=== PATIENT | female | born 1985 | race Hispanic/Latino ===

== ENCOUNTER 2020-11-13 15:39 | Emergency (ER) | payer SELFPAY ==
[2020-11-13 17:47] LABS: Urine Blood NEGATIVE (NEG); Urine Glucose NEGATIVE (NEG); Urine Protein NEGATIVE (NEG)
[2020-11-13] MEDS ORDERED: KETOROLAC 30 MG/ML INJ ONE (19:26)
[2020-11-13] MEDS ORDERED: NA CHLORIDE 0.9% 1,000 ML ONE (19:26)
[2020-11-13] MEDS ORDERED: ONDANSETRON 4 MG/2 ML VIAL ONE (19:26)
[2020-11-13 19:38] LABS: Absolute Lymphocytes (CBC) 3.2 K/uL (0.7-4.9); Basophils % 0.4 % (0-1.3); Hematocrit 36.2 % (36.0-45.0); Lymphocytes % 35.6 % (15.3-44.8); MPV 11.5 fL (7.6-11.3); RBC Red Blood Cell Count 3.92 M/uL (3.86-4.86)
[2020-11-13 19:49] LABS: ALT/SGPT 51 U/L (12-78); AST/SGOT 164 U/L (15-37); Albumin 3.7 g/dL (3.4-5.0); Alkaline Phosphatase 82 U/L (45-117); BUN Blood Urea Nitrogen 10 mg/dL (7-18); Bicarbonate 26 mmol/L (21-32); Bilirubin Direct < 0.1 mg/dL (0-0.2); Bilirubin Total 0.3 mg/dL (0.2-1.0); Glucose Level 79 mg/dL (74-106); Lipase 153 U/L (73-393); Potassium 3.8 mmol/L (3.5-5.1); Protein, Total 7.7 g/dL (6.4-8.2); Sodium Level 141 mmol/L (136-145)
--- NOTE | 2020-11-14 01:51 | EDPHYS ---
Physician Documentation [facility] Name: Becky Mcdonald Age: 35 yrs Sex: Female : 1985 Arrival Date: 11/13/2020 Time: 15:43 Bed 15 Private MD: ED Physician Aron Bhandari HPI: 11/13 19:05 This 35 yrs old Female presents to ER via Ambulatory with complaints of Lower cp abd Pain. 19:05 The patient presents with abdominal pain in the lower abdomen, right side worse than cp left. Onset: The symptoms/episode began/occurred yesterday. 19:05 Associated signs and symptoms: Pertinent positives: constipation, dysuria, Pertinent cp negatives: blood in stools, diarrhea, fever, hematuria, vaginal discharge, vomiting. The symptoms are described as achy. Modifying factors: the symptoms are aggravated by pressure, drawing right leg up to abdomen. 19:05 Severity of pain: in the emergency department the pain is unchanged despite home cp interventions. Historical: - Allergies: 15:56 No Known Allergies; ll1 - PMHx: 15:56 None; ll1 - PSHx: 15:56 Cholecystectomy; ; Tubal ligation; gastric sleeve; ll1 - Immunization history:: Flu vaccine is not up to date. - Social history:: Smoking status: Patient denies any tobacco usage or history of. ROS: 19:10 Constitutional: Negative for body aches, chills, fever, poor PO intake. cp 19:10 Eyes: Negative for injury, pain, redness, and discharge, ENT: Negative for injury, cp pain, and discharge. 19:10 Cardiovascular: Negative for chest pain, palpitations. 19:10 Respiratory: Negative for cough, shortness of breath, wheezing. 19:10 Abdomen/GI: Positive for abdominal pain, nausea, constipation, of the right lower quadrant and left lower quadrant, Negative for vomiting, diarrhea. 19:10 : Positive for burning with urination, Negative for hematuria, flank pain, vaginal bleeding, vaginal discharge. 19:10 All other systems are negative. Exam: 19:20 Constitutional: The patient appears in no acute distress, alert, awake, non-toxic, well cp developed, well nourished. 19:20 Head/Face: Normocephalic, atraumatic. cp 19:20 Eyes: Periorbital structures: appear normal, Conjunctiva: normal, no exudate, no injection, Sclera: no appreciated abnormality, Lids and lashes: appear normal, bilaterally. 19:20 ENT: External ear(s): are unremarkable, Nose: is normal, Posterior pharynx: Airway: no evidence of obstruction, patent. 19:20 Chest/axilla: Inspection: normal, Palpation: is normal, no crepitus, no tenderness. 19:20 Cardiovascular: Rate: normal, Rhythm: regular. 19:20 Respiratory: the patient does not display signs of respiratory distress, Respirations: normal, no use of accessory muscles, no retractions, labored breathing, is not present, Breath sounds: are clear throughout, no decreased breath sounds, no stridor, no wheezing. 19:20 Abdomen/GI: Inspection: abdomen appears normal, Bowel sounds: active, all quadrants, Palpation: soft, in all quadrants, mild abdominal tenderness, in the left lower quadrant, moderate abdominal tenderness, in the right lower quadrant, rebound tenderness, is not appreciated, voluntary guarding, is elicited in the right lower quadrant. 19:20 Back: CVA tenderness, is absent. Vital Signs: 15:53 BP 107 / 55; Pulse 77; Resp 16; Temp 98.4; Pulse Ox 100% ; Weight 76.66 kg; Height 5 ll1 ft. 4 in. (162.56 cm); Pain 6/10; 18:55 BP 113 / 67; Pulse 79; Resp 18; Pulse Ox 100% on R/A; em 20:30 BP 104 / 54; Pulse 64; Resp 18; Pulse Ox 100% on R/A; fu 21:16 BP 101 / 51; Pulse 58; Resp 18; Temp 97.8(O); Pulse Ox 100% ; Pain 0/10; fu 11/14 00:44 BP 90 / 44; Pulse 60; Pulse Ox 99% on R/A; Pain 0/10; fu 11/13 15:53 Body Mass Index 29.01 (76.66 kg, 162.56 cm) ll1 MDM: 11/13 18:50 Patient medically screened. cp 19:30 Differential diagnosis: appendicitis, bowel obstruction, cholecystitis, Cholelithiasis, cp Ectopic , non-specific abd pain, Ovarian Torsion, Pelvic Inflammatory Disease, Pyelonephritis, Ureterolithiasis, urinary tract infection. 11/14 01:36 Data reviewed: vital signs, nurses notes, lab test result(s), radiologic studies, CT cp scan, ultrasound. ED course: US tech reports transvaginal US negative for torsion of right ovary, shows multiple cysts right ovary. 01:48 ED course: review of [place] prescription monitor website: narcotic score of 030, cp sedative score of 010 and overdose risk score of 110. 01:50 Counseling: I had a detailed discussion with the patient and/or guardian regarding: the cp historical points, exam findings, and any diagnostic results supporting the discharge/admit diagnosis, lab results, radiology results, the need for outpatient follow up, an OB/Gyne specialist, to return to the emergency department if symptoms worsen or persist or if there are any questions or concerns that arise at home. 01:50 Response to treatment: the patient's symptoms have markedly improved after treatment, cp and as a result, I will discharge patient. 01:50 Special discussion: Based on the patient's Hx, exam, and Dx evaluation, there is no cp indication for emergent surgery or inpatient Tx. It is understood by the patient/guardian that if the Sx's persist or worsen they need to return immediately for re-evaluation. 11/13 17:39 Order name: Urine Dipstick--Ancillary (enter results); Complete Time: 18:51 11/13 17:39 Order name: Urine --Ancillary (enter results); Complete Time: 18:51 11/13 19:02 Order name: Basic Metabolic Panel; Complete Time: 20:00 11/13 21:04 Interpretation: Normal except: CL 110. 11/13 19: Order name: CBC with Diff; Complete Time: 20:00 11/13 20:01 Interpretation: Normal except: PLT 148; MPV 11.5. 11/13 19:02 Order name: Hepatic Function; Complete Time: 20:00 11/13 20:01 Interpretation: Normal except: AST 164; GLOB 4.0; A/G 0.9. 11/13 19:02 Order name: Lipase; Complete Time: 20:00 11/13 19:02 Order name: IV Saline Lock; Complete Time: 19:28 11/13 19: Order name: Labs collected and sent; Complete Time: 19:29 cp 11/13 19:02 Order name: CT Abd/Pelvis - PO and IV Contrast cp 11/13 23:19 Order name: US Transvaginal Study (Probe) cp Administered Medications: 11/13 19:27 Drug: TORadol - Ketorolac 15 mg Route: IVP; Site: right antecubital; fu 20:27 Follow up: Response: Pain is decreased fu 19:28 Drug: NS 0.9% 1000 ml Route: IV; Rate: 1 bolus; Site: right antecubital; fu 11/14 01:53 Follow up: IV Intake: 1000ml fu 11/13 19:28 Drug: Zofran (Ondansetron) 4 mg Route: IVP; Site: right antecubital; fu 20:28 Follow up: Response: No adverse reaction fu Disposition: 11/14 14:03 Co-signature as Attending Physician, Aron Bhandari MD I agree with the assessment and kdr plan of care. Disposition: 11/14/20 01:50 Discharged to Home. Impression: Other and unspecified ovarian cysts. - Condition is Stable. - Discharge Instructions: Ovarian Cyst. - Prescriptions for Tramadol 50 mg Oral Tablet - take 1 tablet by ORAL route every 8 hours as needed; 12 tablet. - Medication Reconciliation Form, Thank You Letter, Antibiotic Education, Prescription Opioid Use form. - Follow up: Nan Salas MD; When: 1 week; Reason: Recheck today's complaints. - Problem is new. - Symptoms have improved. Signatures: Dispatcher [employer] EDMS Aron Bhandari MD MD [facility] Brandin Israel PA PA Yayo Kapoor RN RN Sabi Albright RN RN ll1 Corrections: (The following items were deleted from the chart) 02:07 01:50 11/14/2020 01:50 Discharged to Home. Impression: Other and unspecified ovarian fu cysts. Condition is Stable. Forms are Medication Reconciliation Form, Thank You Letter, Antibiotic Education, Prescription Opioid Use. Follow up: Nan Salas; When: 1 week; Reason: Recheck today's complaints. Problem is new. Symptoms have improved. cp 23:14 11/13 19:05 Associated signs and symptoms: Pertinent positives: constipation, Pertinent cp negatives: blood in stools, diarrhea, dysuria, fever, hematuria, vaginal discharge, vomiting, cp 11/14 23:14 01 19:05 The symptoms are described as sharp, cp cp
--- NOTE | 2020-11-14 01:51 | ER ---
Nurse's Notes [facility] Name: Becky Mcdonald Age: 35 yrs Sex: Female : 1985 Arrival Date: 11/13/2020 Time: 15:43 Bed 15 Private MD: Diagnosis: Other and unspecified ovarian cysts Presentation: 11/13 15:53 Chief complaint: Patient states: Dysuria and R pelvic pain for 2 days. No fever. + ll1 nausea. Coronavirus screen: Client denies travel out of the [place] in the last 14 days. At this time, the client does not indicate any symptoms associated with coronavirus-19. Ebola Screen: Patient denies travel to an Ebola-affected area in the 21 days before illness onset. Initial Sepsis Screen: Does the patient meet any 2 criteria? No. Patient's initial sepsis screen is negative. Does the patient have a suspected source of infection? Yes: Dysuria/Frequency/Urgency/UTI. Risk Assessment: Do you want to hurt yourself or someone else? Patient reports no desire to harm self or others. Onset of symptoms was November 12, 2020. 15:53 Method Of Arrival: Ambulatory ll1 15:53 Acuity: NOLBERTO 3 ll1 Triage Assessment: 15:56 General: Appears in no apparent distress. Behavior is calm, cooperative, appropriate ll1 for age. Pain: Complains of pain in R pelvic Quality of pain is described as aching. Neuro: No deficits noted. Cardiovascular: No deficits noted. Respiratory: No deficits noted. GI: Abdomen is flat, Bowel sounds present X 4 quads. Reports lower abdominal pain, constipation, nausea. : Reports burning with urination. Historical: - Allergies: 15:56 No Known Allergies; ll1 - PMHx: 15:56 None; ll1 - PSHx: 15:56 Cholecystectomy; ; Tubal ligation; gastric sleeve; ll1 - Immunization history:: Flu vaccine is not up to date. - Social history:: Smoking status: Patient denies any tobacco usage or history of. Screenin:54 Abuse screen: Denies threats or abuse. Nutritional screening: No deficits noted. em Tuberculosis screening: No symptoms or risk factors identified. Fall Risk None identified. Assessment: 18:50 General: Appears in no apparent distress. comfortable, Behavior is calm, cooperative, em appropriate for age, Denies fever. Pain: Complains of pain in right lower quadrant Pain currently is 6 out of 10 on a pain scale. Neuro: Level of Consciousness is awake, alert, obeys commands, Oriented to person, place, time, situation, Appropriate for age. Cardiovascular: Capillary refill < 3 seconds Patient's skin is warm and dry. Respiratory: Airway is patent Respiratory effort is even, unlabored, Respiratory pattern is regular, symmetrical. GI: Patient currently denies nausea, vomiting. : Reports burning with urination. Derm: Skin is intact, is healthy with good turgor, Skin is pink, warm \T\ dry. Musculoskeletal: Capillary refill < 3 seconds, Range of motion: intact in all extremities. 19:00 Reassessment: Patient and/or family updated on plan of care and expected duration. Pain fu level reassessed. Patient is alert, oriented x 3, equal unlabored respirations, skin warm/dry/pink. patient resting in bed, not in respiratory distress. 20:00 Reassessment: Patient appears in no apparent distress at this time. No changes from fu previously documented assessment. 22:43 Reassessment: Patient appears in no apparent distress at this time. No changes from fu previously documented assessment. Patient and/or family updated on plan of care and expected duration. Pain level reassessed. 11/14 00:25 Reassessment: Patient appears in no apparent distress at this time. Patient is alert, fu oriented x 3, equal unlabored respirations, skin warm/dry/pink. 01:50 Reassessment: Patient appears in no apparent distress at this time. No changes from fu previously documented assessment. Vital Signs: 11/13 15:53 BP 107 / 55; Pulse 77; Resp 16; Temp 98.4; Pulse Ox 100% ; Weight 76.66 kg; Height 5 ll1 ft. 4 in. (162.56 cm); Pain 6/10; 18:55 BP 113 / 67; Pulse 79; Resp 18; Pulse Ox 100% on R/A; em 20:30 BP 104 / 54; Pulse 64; Resp 18; Pulse Ox 100% on R/A; fu 21:16 BP 101 / 51; Pulse 58; Resp 18; Temp 97.8(O); Pulse Ox 100% ; Pain 0/10; fu 11/14 00:44 BP 90 / 44; Pulse 60; Pulse Ox 99% on R/A; Pain 0/10; fu 11/13 15:53 Body Mass Index 29.01 (76.66 kg, 162.56 cm) ll1 ED Course: 11/13 15:43 Patient arrived in ED. ds1 15:55 Triage completed. ll1 15:56 Arm band placed on. ll1 18:41 Ward Pedro, RN is Primary Nurse. em 18:46 Brandin Israel PA is PHCP. cp 18:46 Aron Bhandari MD is Attending Physician. cp 18:54 Patient has correct armband on for positive identification. Placed in gown. Bed in low em position. Call light in reach. Adult w/ patient. Pulse ox on. NIBP on. 19:20 Inserted saline lock: 20 gauge in right antecubital area, using aseptic technique. fu Blood collected. 19:24 Primary Nurse role handed off by Ward Pedro RN mw2 19:27 Yayo Kapoor RN is Primary Nurse. fu 19:28 Basic Metabolic Panel Sent. fu 19:28 CBC with Diff Sent. fu 19:28 Hepatic Function Sent. fu 19:28 Lipase Sent. fu 19:50 No provider procedures requiring assistance completed. fu 22:46 CT Abd/Pelvis - PO and IV Contrast In Process Unspecified. EDMS 11/14 01:34 US Transvaginal Study (Probe) In Process Unspecified. EDMS 01:49 Nan Salas MD is Referral Physician. cp 02:03 IV discontinued, bleeding controlled, Pressure dressing applied. fu 02:04 Ultrasound completed. Patient tolerated well. Notified ED Physician page. sg3 Administered Medications: 11/13 19:27 Drug: TORadol - Ketorolac 15 mg Route: IVP; Site: right antecubital; fu 20:27 Follow up: Response: Pain is decreased fu 19:28 Drug: NS 0.9% 1000 ml Route: IV; Rate: 1 bolus; Site: right antecubital; fu 11/14 01:53 Follow up: IV Intake: 1000ml fu 11/13 19:28 Drug: Zofran (Ondansetron) 4 mg Route: IVP; Site: right antecubital; fu 20:28 Follow up: Response: No adverse reaction fu Intake: 11/14 01:53 IV: 1000ml; Total: 1000ml. fu Outcome: 01:50 Discharge ordered by . clementina 02:03 Discharged to home ambulatory. fu 02:03 Condition: good 02:03 Discharge instructions given to patient, Instructed on discharge instructions, follow up and referral plans. Demonstrated understanding of instructions, follow-up care, Prescriptions given X 1. 02:07 Patient left the ED. fu Signatures: Dispatcher [employer] Ward Rankin, RN RN Chacha Glover ds1 Brandin Israel PA PA cp Umadhay, Felix, RN RN Reta Sellers 3 Bryson Khoury mw2 Sabi Albright RN RN ll1
[2020-11-14 02:22] VITALS: TEMP 97.8
[2020-11-14 02:24] VITALS: BP 90/44; O2SAT 99
--- NOTE | 2020-11-15 12:52 | RAD REPORT ---
EXAM DESCRIPTION: CT - Abdomen Pelvis W Contrast - 11/14/2020 1:22 am CLINICAL HISTORY: 35-year-old female with RIGHT lower quadrant abdominal pain. COMPARISON: None. TECHNIQUE: CT of the abdomen and pelvis was performed following intravenous administration of contra st. Oral contrast was administered. Multiplanar reformatted images were provided. This exam was perfo rmed according to our departmental dose optimization program which includes use of automated exposure control, adjustment of the mA and/or kV according to patient size and/or use of iterative reconstruc tion technique. FINDINGS: Chest: Evaluation through the lung bases reveals no focal opacity, pleural effusion or pne umothorax. Heart size is within normal limits. No pericardial effusion. Abdomen and pelvis: The liver, gallbladder, pancreas, spleen, bilateral kidneys and bilateral adrenal glands are within normal limits. The vessels are patent and normal in caliber. Retroaortic LEFT renal vein. No abdominopelvic lymph nodes are noted to be pathologically enlarged by CT measurement criteria. The bowel is within normal limits without abnormal bowel wall thickness or bowel dilation. Contrast o pacifies the distal small bowel through the large bowel to the level of the rectum. The appendix is o pacified and within normal limits. No free air. No free abdominopelvic fluid collections. The uterus and LEFT adnexa are within normal limits of a contrast-enhanced CT examination. The RIGHT adnexa reveals multiple cystic type structures, individually measuring up to 3.7 cm, collectively gema suring up to 6.3 cm raising the possibility of multiple ovarian cysts or a larger cyst with septation . Thickened appearance of the bladder wall may be secondary to incomplete distention, however can be se en in the setting of infectious or inflammatory process. Please correlate with laboratory values. The osseous structures are within normal limits. IMPRESSION: 1. No specific acute intra-abdominal findings are noted to suggest etiology of the patie nt's abdominal pain. 2. Multiple ovarian cysts. Most severe: 6.3 cm indeterminate ovarian cyst. Recommend prompt follow- up with pelvic US. Reference: J Am Rae Radiol 2013;10:675-681 3. Thickened appearance of the bladder wall may be secondary to incomplete distention, however can be seen in the setting of infectious or inflammatory process. Please correlate with laboratory values. Electronically signed by: Reta Ontiveros MD 11/13/2020 11:06 PM RULING MACHINE FEEDER Due to temporary technical issues with the PACS/Fluency reporting system, reports are being signed by the in house radiologist without review as a courtesy to ensure prompt reporting. The interpreting r adiologist is fully responsible for the content of the report.
--- NOTE | 2020-11-15 13:10 | RAD REPORT ---
EXAM DESCRIPTION: US - Transvaginal Study Probe - 11/14/2020 1:34 am CLINICAL HISTORY: The patient is 35 years old and is Female; r/o ovarian torsion;Abd pain TECHNIQUE: Real-time transvaginal pelvic ultrasound with image documentation. Transvaginal imaging was used for better evaluation of the endometrium and adnexa. COMPARISON: No relevant prior studies available. FINDINGS: UTERUS/CERVIX: The uterus measures 10.0 x 3.4 x 5.9 cm. The endometrium measures 1.5 cm. Several nabothian cysts are present. A 2.7 cm exophytic uterine fibroid is present. RIGHT OVARY: The right ovary measures 5.3 x 4.1 x 6.4 cm. Normal arterial and venous color Doppl er and spectral waveform is present. 2 complex right ovarian cysts are present measuring approximatel y 3.1 x 3.5 cm. Normal blood flow. LEFT OVARY: The left ovary is not visualized secondary to bowel gas. FREE FLUID: No free fluid. BLADDER: Empty bladder which cannot be evaluated with this probe. IMPRESSION: 1. No evidence of torsion. 2. Complex right ovarian cysts. 3.5 cm indeterminate ovarian cyst. Recommend pelvic US follow-up in 6-12 weeks; if unchanged, continue follow-up with US OR MRI with IV contrast - if follow-up studie s do not confirm endometrioma or dermoid, consider surgical evaluation. Reference: Radiology 2010 Jun;256(3):943-73 Electronically signed by: Araceli Mcclain MD 11/14/2020 5:56 AM COMMERCIAL SUBCONTRACTOR Due to temporary technical issues with the PACS/Fluency reporting system, reports are being signed by the in house radiologist without review as a courtesy to ensure prompt reporting. The interpreting r adiologist is fully responsible for the content of the report.
== END 2020-11-14 02:07 | disposition home or self-care (01) ==
LOC: ER 15:39
DX: N83.299 Other ovarian cyst, unspecified side (principal)
CPT/HCPCS: 36415; 74177; 76830; 80048; 80076; 81003; 81025; 83690; 85025; 96374; 96375; 99284; J2405; J7030; Q9967

== ENCOUNTER 2021-01-25 19:02 | Emergency (ER) | payer OTHER, SELFPAY ==
--- OUTSIDE RECORDS SUMMARY | 2021-01-25 19:06 | XMS REPORT | Continuity of Care Document ---
:1985 Author Organization [facility] t Address [address] [place] [address] Care Team Providers Name Role Phone Maria Esther Valle Attending Clinician Doctor Unassigned, Name Attending Clinician Unavailable Torsten James MD Attending Clinician Problems This patient has no known problems. Allergies, Adverse Reactions, Alerts This patient has no known allergies or adverse reactions. Medications This patient has no known medications. Procedures This patient has no known procedures. Encounters Start End Encounter Admission Attending Care Care Encounter Source Date/Time Date/Time Type Type Clinicians Facility Department ID 2021-01-18 2021-01-18 MARIAM Cullen [id number] 08:51:19 09:41:09 Maria Esther Dc [facility] RN [id number] Visit [facility] [id number] MATERNAL [id number] & CHILD [address] [place] [address] 2021-01-18 2021-01-18 Orders Doctor NI [id number] 00:00:00 00:00:00 Only [facility] [id number] [id number] 2020-11-22 2020-11-22 Orders Doctor NI [id number] 00:00:00 00:00:00 Only [facility] bourne [id number] [place] [id number] 2020-06-02 2020-06-02 Office Erika HIMARTIN [id number] 13:01:03 13:16:03 Visit David Onofre [id number] Torsten Butler [id number] Yovanny [id number] [place] [address] Building Results This patient has no known results.
[2021-01-25 20:40] LABS: Urine Blood Trace-lysed (Negative); Urine Glucose Negative (Negative); Urine Protein Negative (Negative); Urine Specific Gravity 1.025 (1.005-1.030)
[2021-01-25 20:50] LABS: Urine Blood TRACE (Negative); Urine Glucose NEGATIVE (Negative); Urine Protein NEGATIVE (Negative); Urine Specific Gravity 1.025 (1.005-1.030)
[2021-01-25 21:04] LABS: Urine Bacteria <20 /HPF (<20); Urine RBC NONE SEEN /HPF (NONE SEEN); Urine Urothelial Cells <5 /HPF (NONE SEEN)
[2021-01-25 21:07] LABS: Absolute Lymphocytes (CBC) 3.1 K/uL (0.7-4.9); Basophils % 0.2 % (0-1.3); Hematocrit 32.6 % (36.0-45.0); Lymphocytes % 27.9 % (15.3-44.8); MPV 11.1 fL (7.6-11.3); RBC Red Blood Cell Count 3.54 M/uL (3.86-4.86)
[2021-01-25 21:34] LABS: BUN Blood Urea Nitrogen 11 mg/dL (7-18); Bicarbonate 23 mmol/L (21-32); Glucose Level 97 mg/dL (74-106); HCG, Quantitative 15005 mIU/mL (1-3); Potassium 3.5 mmol/L (3.5-5.1); Sodium Level 139 mmol/L (136-145)
[2021-01-25 22:24] LABS: Urine Specific Gravity/Preg 1.025 (1.005-1.030)
--- NOTE | 2021-01-25 23:08 | ER ---
Nurse's Notes [facility] Name: Becky Mcdonald Age: 35 yrs Sex: Female : 1985 Arrival Date: 01/25/2021 Time: 19:07 Bed 2 Private MD: Diagnosis: Threatened Presentation: 01/25 19:23 Chief complaint: Patient states: Spotting with urination since Sunday. Today, she had a ll1 small clot that she noticed in the toilet after urination. LMP: 12/18/20. Approximately 5 weeks , G4, P3. Coronavirus screen: Client denies travel out of the [place] in the last 14 days. At this time, the client does not indicate any symptoms associated with coronavirus-19. Ebola Screen: Patient denies travel to an Ebola-affected area in the 21 days before illness onset. Initial Sepsis Screen: Does the patient meet any 2 criteria? No. Patient's initial sepsis screen is negative. Does the patient have a suspected source of infection? Yes: Dysuria/Frequency/Urgency/UTI. Risk Assessment: Do you want to hurt yourself or someone else? Patient reports no desire to harm self or others. Onset of symptoms was January 20, 2021. 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 - Social history:: Smoking status: Patient denies any tobacco usage or history of. Screenin:48 Abuse screen: Denies threats or abuse. Nutritional screening: No deficits noted. ea Tuberculosis screening: No symptoms or risk factors identified. Fall Risk None identified. Assessment: 21:17 General: Appears in no apparent distress. Behavior is calm, cooperative, appropriate ea for age. Pain: Denies pain. Neuro: Level of Consciousness is awake, alert, obeys commands, Oriented to person, place, time. Cardiovascular: Patient's skin is warm and dry. Respiratory: Airway is patent Respiratory effort is even, unlabored, Respiratory pattern is regular, symmetrical. Derm: Skin is pink, warm \T\ dry. 21:58 Reassessment: Patient and/or family updated on plan of care and expected duration. Pain ea level reassessed. Patient is alert, oriented x 3, equal unlabored respirations, skin warm/dry/pink. Ultrasounds at bedside. 22:30 Reassessment: Patient and/or family updated on plan of care and expected duration. Pain ea level reassessed. Patient is alert, oriented x 3, equal unlabored respirations, skin warm/dry/pink. Vital Signs: 19:23 BP 111 / 68; Pulse 76; Resp 16; Temp 98.3; Pulse Ox 98% ; Weight 70.31 kg; Height 5 ft. ll1 4 in. (162.56 cm); Pain 0/10; 23:07 BP 112 / 70; Pulse 77; Resp 16; Pulse Ox 99% on R/A; sg 19:23 Body Mass Index 26.61 (70.31 kg, 162.56 cm) ll1 ED Course: 19:07 Patient arrived in ED. ds1 19:22 Arm band placed on. ll1 19:27 Triage completed. ll1 20:22 Vik Mireles NP is PHCP. pm1 20:22 Jose L De Los Santos MD is Attending Physician. pm1 20:47 Meri Hand, YING is Primary Nurse. ea 20:48 Patient has correct armband on for positive identification. Bed in low position. Call ea light in reach. 20:57 Inserted saline lock: 20 gauge in left antecubital area, using aseptic technique. Blood ea collected. 22:30 US Transvaginal Ob In Process Unspecified. EDMS 23:17 No provider procedures requiring assistance completed. IV discontinued, intact, sg bleeding controlled, No redness/swelling at site. Pressure dressing applied. Administered Medications: No medications were administered Outcome: 23:07 Discharge ordered by . pm1 23:17 Discharged to home ambulatory. sg 23:17 Condition: good 23:17 Discharge instructions given to patient, Instructed on discharge instructions, follow up and referral plans. safety practices, Demonstrated understanding of instructions, follow-up care. 23:17 Patient left the ED. sg Signatures: Dispatcher [employer] EDMS Nikhil Hayes RN RN Chacha Myers ds1 Vik Mireles, NURSE STAFF NURSE STAFF pm1 Meri aHnd, RN RN ea Sabi Albright, YING RN ll1
--- NOTE | 2021-01-25 23:08 | EDPHYS ---
Physician Documentation [facility] Name: Becky Mcdonald Age: 35 yrs Sex: Female : 1985 Arrival Date: 01/25/2021 Time: 19:07 Bed 2 Private MD: ED Physician Jose L De Los Santos HPI: 01/25 20:59 This 35 yrs old Female presents to ER via Ambulatory with complaints of Vag pm1 Discharge 5 wks Preg. 20:59 The patient presents with vaginal discharge, brownish substance that she believes might pm1 be products of conception. Onset: The symptoms/episode began/occurred today. Modifying factors: The symptoms are alleviated by nothing, the symptoms are aggravated by nothing. Associated signs and symptoms: Pertinent positives: cramping, Pertinent negatives: dysuria, fever. Severity of symptoms: in the emergency department the symptoms have improved. The patient is sexually active. The patient has not experienced similar symptoms in the past. The patient has not recently seen a physician. UNDERWRITER: 20:59 4, Full Term 3, Living 3 pm1 Historical: - Allergies: 19:28 No Known Allergies; ll1 - PMHx: 19:28 None; ll1 - PSHx: 19:28 Cholecystectomy; ; Tubal ligation; gastric sleeve; tubal reversal; ll1 - Immunization history:: Flu vaccine is not up to date. - Social history:: Smoking status: Patient denies any tobacco usage or history of. ROS: 20:59 Positive for vaginal discharge, Negative for urinary symptoms. pm1 20:59 Constitutional: Negative for fever, chills, and weight loss, Cardiovascular: Negative for chest pain, palpitations, and edema, Respiratory: Negative for shortness of breath, cough, wheezing, and pleuritic chest pain. 20:59 MS/Extremity: Negative for injury and deformity, Skin: Negative for injury, rash, and discoloration, Neuro: Negative for headache, weakness, numbness, tingling, and seizure. 20:59 Abdomen/GI: Positive for abdominal cramps, of the suprapubic area, Negative for nausea, vomiting, and diarrhea. Exam: 20:59 Constitutional: This is a well developed, well nourished patient who is awake, alert, pm1 and in no acute distress. Head/Face: Normocephalic, atraumatic. 20:59 Back: No spinal tenderness. No costovertebral tenderness. Full range of motion. Skin: Warm, dry with normal turgor. Normal color with no rashes, no lesions, and no evidence of cellulitis. MS/ Extremity: Pulses equal, no cyanosis. Neurovascular intact. Full, normal range of motion. 20:59 Cardiovascular: Exam negative for acute changes, Rate: normal, Rhythm: regular, Pulses: no pulse deficits are appreciated. 20:59 Respiratory: Exam negative for acute changes, respiratory distress, shortness of breath. 20:59 Abdomen/GI: Inspection: abdomen appears normal, Palpation: abdomen is soft and non-tender, in all quadrants. 20:59 Neuro: Exam negative for acute changes, Orientation: is normal, Mentation: is normal, Motor: is normal, moves all fours. Vital Signs: 19:23 BP 111 / 68; Pulse 76; Resp 16; Temp 98.3; Pulse Ox 98% ; Weight 70.31 kg; Height 5 ft. ll1 4 in. (162.56 cm); Pain 0/10; 23:07 BP 112 / 70; Pulse 77; Resp 16; Pulse Ox 99% on R/A; sg 19:23 Body Mass Index 26.61 (70.31 kg, 162.56 cm) ll1 MDM: 20:23 Patient medically screened. pm1 23:07 Data reviewed: vital signs. Data interpreted: Pulse oximetry: on room air is 98 %. pm1 Interpretation: normal. Counseling: I had a detailed discussion with the patient and/or guardian regarding: the historical points, exam findings, and any diagnostic results supporting the discharge/admit diagnosis, lab results, radiology results, the need for outpatient follow up, an OB/Gyne specialist, to return to the emergency department if symptoms worsen or persist or if there are any questions or concerns that arise at home. 01/25 20:40 Order name: Urine Dipstick-Ancillary; Complete Time: 20:43 EDMS 01/25 20:45 Order name: Quantitative Hcg pm1 01/25 20:45 Order name: Abo/rh Typing pm1 01/25 20:45 Order name: Basic Metabolic Panel pm1 01/25 20:45 Order name: CBC with Diff pm01/25 20:45 Order name: Urine Microscopic Only pm01/25 20:45 Order name: Urine Dipstick--Ancillary (enter results): Clean Catch; Complete Time: 21:18tt3 01/25 20:45 Order name: HCG, Quantitative; Complete Time: 21:52 EDMS 01/25 20:45 Order name: ABO/RH typing; Complete Time: 21:26 EDMS 01/25 20:45 Order name: Basic Metabolic Panel; Complete Time: 21:52 EDMS 01/25 20:45 Order name: CBC with Automated Diff; Complete Time: 21:18 EDMS 01/25 20:45 Order name: Urine Microscopic Only; Complete Time: 21:18 EDMS 01/25 21:20 Order name: Urine --Ancillary (enter results) tt3 01/25 21:20 Order name: Urine --Ancillary; Complete Time: 22:59 EDMS 01/25 20:45 Order name: Urine Test (obtain specimen); Complete Time: 20:57 pm1 01/25 20:45 Order name: IV Saline Lock; Complete Time: 20:57 pm1 01/25 20:45 Order name: Labs collected and sent; Complete Time: 20:56 pm1 01/25 20:45 Order name: NPO; Complete Time: 20:56 pm1 01/25 20:45 Order name: Urine Dipstick-Ancillary (obtain specimen); Complete Time: 20:57 tt3 01/25 21:19 Order name: US Transvaginal Ob pm1 Administered Medications: No medications were administered Disposition: 01/26 00:18 Co-signature as Attending Physician, Jose L De Los Santos MD. rn Disposition: 01/25/21 23:07 Discharged to Home. Impression: Threatened . - Condition is Stable. - Discharge Instructions: Threatened Miscarriage, Pelvic Rest. - Work release form, Medication Reconciliation Form, Thank You Letter, Antibiotic Education, Prescription Opioid Use form. - Follow up: Emergency Department; When: As needed; Reason: Worsening of condition. Follow up: Private Physician; When: 2 - 3 days; Reason: Recheck today's complaints, Continuance of care, Re-evaluation by your physician. - Problem is new. - Symptoms have improved. Signatures: Dispatcher [facility] Nikhil Hayes RN RN sg Nieto, Roman, MD MD rn Marinas, Patrick, TELEPHONE ANSWERING SERVICE OPERATOR TELEPHONE ANSWERING SERVICE OPERATOR pm1 Sabi Albright RN RN [email or web address] Sherwin Castanon tt3 Corrections: (The following items were deleted from the chart) 01/25 23:17 23:07 01/25/2021 23:07 Discharged to Home. Impression: Threatened . Condition sg is Stable. Forms are Medication Reconciliation Form, Thank You Letter, Antibiotic Education, Prescription Opioid Use. Follow up: Emergency Department; When: As needed; Reason: Worsening of condition. Follow up: Private Physician; When: 2 - 3 days; Reason: Recheck today's complaints, Continuance of care, Re-evaluation by your physician. Problem is new. Symptoms have improved. pm1
[2021-01-25 23:30] VITALS: BP 111/68; TEMP 98.3; O2SAT 98
--- NOTE | 2021-01-26 11:01 | RAD REPORT ---
EXAM DESCRIPTION: Transvaginal OB 01/25/2021 10:42 PM CDT CLINICAL HISTORY: 35 years, Female, ABD CRAMPING, COMPARISON: None. TECHNIQUE: Utilizing a curved array transducer, real-time ultrasound evaluation of the female pelvis was performed. Color Doppler imaging was used to assess vascular flow. A transvaginal probe was used to further delineate structures. FINDINGS: The uterus measures 11.9 x 7.3 x 4.9 cm. The endometrial stripe demonstrate to be thicke lesia and measure 14.5 mm, there is a ovoid appearance of the gestational sac within the lower uterine segment with a mean measurement sac of 1.27 cm corresponding to a ultrasonographic gestational age of 6 weeks and 0 days. Yolk sac was visualized. pole was not seen. No cardiac activity was seen. Nabothian cyst are noted within the cervix. The uterus demonstrate the presence of the hypoechoic les ions most likely in home sales representative of the uterine fibroids The right ovary measured 5.3 x 4.1 x 6.4 cm with a hypoechoic area measuring 3.2 x 3.5 x 3.1 cm and s econd adjacent hypoechoic lesion measuring 3 x 2.9 x 2.6 cm, perhaps corresponding to hemorrhagic cys t. There is normal vascular flow and spectral waveforms with no evidence for torsion. The left ovary was not visualized either transabdominally and/or endovaginally. No free fluid was identified in the posterior cul-de-sac, no adnexal masses seen. IMPRESSION: PROMINENT UTERUS WITH MOST LIKELY FIBROIDS. INTRAUTERINE LOW IN POSITION WITHIN THE LOWER UTERINE SEGMENT CORRESPONDING TO 6 WEEKS AND 0 DAY. ONLY YOLK SAC WAS IDENTIFIED. RIGHT OVARY DEMONSTRATE MOST LIKELY HEMORRHAGIC CYST. LEFT OVARY WAS NOT VISUALIZED. Electronically signed by: Jose Farley MD 01/25/2021 10:52 PM CDT Due to temporary technical issues with the PACS/Fluency reporting system, reports are being signed by the in house radiologist without review as a courtesy to ensure prompt reporting. The interpreting r adiologist is fully responsible for the content of the report.
== END 2021-01-25 23:17 | disposition home or self-care (01) ==
LOC: ER 19:02
DX: O20.0 Threatened abortion (principal); Z3A.01 Less than 8 weeks gestation of pregnancy
CPT/HCPCS: 36415; 76817; 80048; 81003; 81015; 81025; 84702; 85025; 86900; 86901; 99283